=== PATIENT | female | born 1955 | race Caucasian/White ===

== ENCOUNTER 2017-08-30 10:40 | Emergency (ER) | payer MEDICAID ==
--- NOTE | 2017-08-30 10:55 | EDPHY ---
H & P Stated Complaint: burn on forearm Time Seen by Provider: 08/30/17 10:46 HPI/ROS: Chief Complaint: Left arm burn HPI: The patient presents to the ED with complaints of a burn to her left arm that occurred 4 days prior to arrival. She burned herself on hot wax. She sustained a partial-thickness burn to the dorsal aspect of her left forearm. She has been applying antibiotic ointment twice daily. She denies any additional complaints. She is having a fair amount of pain which is sharp and burning. REVIEW OF SYSTEMS: Neuro: no headache, numbness, weakness Musculoskeletal: as above Skin: As above Source: Patient - Personal History Current Tetanus/Diphtheria Vaccine: Yes Current Tetanus Diphtheria and Acellular Pertussis (TDAP): Yes Tetanus Vaccine Date: 2-3 YRS AGO - Medical/Surgical History Hx Asthma: No Hx Chronic Respiratory Disease: No Hx Diabetes: No Hx Cardiac Disease: No Hx Renal Disease: No Hx Cirrhosis: No Hx Alcoholism: No Hx HIV/AIDS: No Hx Splenectomy or Spleen Trauma: No Other PMH: HERNIA - Social History Smoking Status: Current every day smoker - Physical Exam Exam: General: No acute distress Left upper extremity: Partial-thickness burn noted to the dorsal aspect of the left forearm, non circumferential, neurovascularly intact, no significant erythema noted Constitutional: Initial Vital Signs Temperature (C) 36.7 C 08/30/17 10:44 Heart Rate 70 08/30/17 10:44 Respiratory Rate 16 08/30/17 10:44 Blood Pressure 149/98 H 08/30/17 10:44 O2 Sat (%) 98 08/30/17 10:44 O2 Delivery Mode Room Air Allergies/Adverse Reactions: No Known Allergies Allergy (Unverified 05/21/15 09:10) Home Medications: Medication Instructions Recorded Estrace 05/21/15 Hrt 05/21/15 Testosterone Cream 05/21/15 Oxycodone HCl [Oxyir] 1 - 2 tab PO Q6 PRN #20 capsule 08/30/17 Silver Sulfadiazine [Silvadene] 1 inch TP BID #50 gm 08/30/17 Medical Decision Making ED Course/Re-evaluation: The patient presents to the ED with a partial-thickness burn to the left forearm. She will be given a prescription for Silvadene ointment. She is given a prescription for oxycodone for uncontrolled pain. She will follow up with our wound Care [facility] for a check next week. Departure - Departure Disposition: Home, Routine, Self-Care Clinical Impression: Burn of left forearm Qualifiers: Encounter type: initial encounter Burn degree: partial thickness (2nd degree) Qualified Code(s): T22.212A - Burn of second degree of left forearm, initial encounter Condition: Good Instructions: Second Degree Burn (ED) Additional Instructions: 1. Apply Silvadene ointment twice daily to your burn. 2. Take Ibuprofen or Motrin 600 mg by mouth three times a day. 3. Oxycodone as needed for severe pain. 4. Please schedule a follow-up appointment with the wound care center for a follow-up visit within the week Referrals: Gina Mccracken MD [Medical Doctor] - As per Instructions
[2017-08-30] MEDS ORDERED: BACITRACIN OINTMENT 1 PACKET TP ONE (11:01)
[2017-08-30 11:09] VITALS: BP 108/75; PULSE 69; RESP 18; TEMP 98.2; O2SAT 95
== END 2017-08-30 11:08 | disposition home or self-care (01) ==
PROC: 2W29X4Z Dressing of Left Upper Extremity using Bandage (ICD-10-PCS; principal; 2017-08-30)
DX: T22.212A Burn of second degree of left forearm, initial encounter (principal); F17.200 Nicotine dependence, unspecified, uncomplicated; X19.XXXA Contact with other heat and hot substances, initial encounter

== ENCOUNTER → 2017-10-20 | Outpatient (CLI) | payer MEDICAID | LOC: FIMAGING 13:20 | PROVIDERS: ATTEND Nurse Practitioner Women's Health | DX: Z12.31 Encounter for screening mammogram for malignant neoplasm of breast (principal) ==

== ENCOUNTER → 2017-12-12 | Outpatient (CLI) | payer MEDICAID | LOC: FIMAGING 07:53 | PROVIDERS: ATTEND Nurse Practitioner Women's Health | DX: D25.2 Subserosal leiomyoma of uterus (principal); N95.0 Postmenopausal bleeding ==